=== PATIENT | female | born 1985 | race Two or more races ===

== ENCOUNTER 2018-11-30 11:46 | Outpatient (CLI) | payer OTHER | END 2018-11-30 14:56 | disposition home or self-care (01) | LOC: RX STUDY 11:46 | DX: N93.0 Postcoital and contact bleeding (principal) ==

== ENCOUNTER 2023-10-20 05:45 | Day surgery (SDC) | payer OTHER ==
[2023-09-30 11:02] LABS: HEMATOCRIT 39.6 % (36.0-45.00); HEMOGLOBIN 13.5 g/dL (12.0-15.00); MEAN CELL VOLUME 86.3 fL (80.00-100.00); MEAN CORPUSCULAR HEMOGLOBIN 29.4 pg (27.00-32.0); MEAN CORPUSCULAR HGB CONC 34.1 g/dl (32.0-36.0); PLATELET COUNT 275 K/uL (150-450); RED BLOOD COUNT 4.59 M/uL (4.00-6.00); RED CELL DISTRIBUTION WIDTH 14.1 % (11.5-14.5)
[2023-09-30 11:08] LABS: PH,URINE 7.5 (5.0-8.0); URINE APPEARANCE Clear; URINE BILIRRUBIN Negative (NEGATIVE); URINE BLOOD Negative; URINE COLOR Yellow; URINE GLUCOSE Negative (NEGATIVE); URINE LEUKOCYTE Negative; URINE NITRATE Negative; URINE PROTEIN Negative (NEGATIVE); URINE UROBILINOGEN 0.2 E.U./dl
[2023-09-30 11:13] LABS: URINE EPITHELIAL CELLS 2.2 uL (0.0-38.8); URINE RBC 15.2 uL (0.0-20.8); URINE WBC 1.8 uL (0.0-23.2)
[2023-09-30 11:15] LABS: URINE BACTERIA 2.5 uL (0.0-1933)
[2023-09-30 11:25] LABS: INR 1.04; PARTIAL THROMBOPLASTIN TIME 28.6 SECONDS (22.0-34.0); PROTHROMBIN TIME 10.9 SECONDS (9.0-11.5)
[2023-09-30 11:36] LABS: ALBUMIN 3.6 gm/dL (3.4-5.0); BILIRUBIN TOTAL 0.33 mg/dL (0.3-1.2); CREATININE SERUM 0.71 mg/dL (0.55-1.02); GFR 92.13; GLOBULINA 3.1 G/DL (2.4-3.5); POTASSIUM 4.08 mEq/L (3.5-5.1); TOTAL PROTEIN 6.7 gm/dL (6.4-8.2); TSH 0.658 uIU/mL (0.358-3.74)
[~2023-10-20 05:45] MED LIST: HYZAAR 100-251 EACH; TRANDATE300 MG
[2023-10-20] MEDS ORDERED: NAPR500T14 PO (13:48)
[2023-10-20] MEDS ORDERED: MORGIDOX100 MG PO (13:48)
== END 2023-10-20 19:00 | disposition home or self-care (01) ==
LOC: CIR.AMB 05:45
PROVIDERS: ATTEND Obstetrics & Gynecology
DX: N84.0 Polyp of corpus uteri (principal); N93.8 Other specified abnormal uterine and vaginal bleeding; D25.9 Leiomyoma of uterus, unspecified; Z20.822 Contact with and (suspected) exposure to COVID-19